=== PATIENT | male | born 1945 | race Caucasian/White ===

== ENCOUNTER 2016-12-01 09:15 | Emergency (ER) | payer MEDICARE ==
[2016-12-01 09:24] VITALS: BP 115/73
[2016-12-01] MEDS ORDERED: predniSONE TAB* 20 MG PO ONE (09:46)
--- NOTE | 2016-12-01 09:46 | UC ---
Lower Extremity/Ankle HPI - HPI Summary HPI Summary: 71 YO MALE WITH THE ONSET OF RIGHT GREAT TOE PAIN AND REDNESS X 1 DAY NO TRAUMA PAIN FREE UNLESS WT BEARING - History of Current Complaint Chief Complaint: UCLowerExtremity Stated Complaint: FOOT COMPLAINT Time Seen by Provider: 12/01/16 09:39 Hx Obtained From: Patient Onset/Duration: Gradual Onset, Lasting Hours Severity Initially: Moderate Severity Currently: Mild Pain Intensity: 0 - WHILE SEATED Pain Scale Used: 0-10 Numeric Aggravating Factor(s): Standing, Ambulation Alleviating Factor(s): Rest Able to Bear Weight: Yes - Allergies/Home Medications Allergies/Adverse Reactions: Allergies Allergy/AdvReac Type Severity Reaction Status Date / Time Sulfa Antibiotics Allergy Hives Verified 12/01/16 09:18 Home Medications: Home Medications Levothyroxine TAB* [Synthroid 25 MCG TAB*] 0.75 mcg PO DAILY 12/01/16 [History Confirmed 12/01/16] Linagliptin (NF) [Tradjenta (NF)] 5 mg PO DAILY 12/01/16 [History Confirmed ] PMH/Surg Hx/FS Hx/Imm Hx Previously Healthy: Yes Endocrine History: Diabetes, Dyslipidemia Cardiovascular History: Hypertension - Surgical History Surgical History: Yes Surgery Procedure, Year, and Place: 1984 & May 2008 - Hernia repair. LEG VAIN SURGERY. testicle cyst removed. dental - Family History Known Family History: Positive: Cardiac Disease, Hypertension, Other - DENIES FH OF GOUT - Social History Alcohol Use: None Substance Use Type: None Smoking Status (MU): Never Smoked Tobacco Review of Systems Constitutional: Negative Skin: Negative Eyes: Negative ENT: Negative Respiratory: Negative Cardiovascular: Negative Gastrointestinal: Negative Genitourinary: Negative Motor: Negative Neurovascular: Negative Musculoskeletal: Arthralgia Neurological: Negative Psychological: Negative Is Patient Immunocompromised?: No All Other Systems Reviewed And Are Negative: Yes Physical Exam Triage Information Reviewed: Yes Appearance: Well-Appearing, No Pain Distress, Well-Nourished Vital Signs: Initial Vital Signs Temp 97.8 F 12/01/16 09:20 Pulse 84 12/01/16 09:20 Resp 16 12/01/16 09:20 BP 115/73 12/01/16 09:20 Pulse Ox 100 12/01/16 09:20 Vital Signs Reviewed: Yes Eyes: Positive: Conjunctiva Clear ENT: Positive: Hearing grossly normal. Negative: Nasal congestion, Nasal drainage, Tonsillar swelling, Tonsillar exudate, Trismus, Muffled/hoarse voice Neck: Positive: Supple, Nontender Respiratory: Positive: Lungs clear, Normal breath sounds, No respiratory distress Cardiovascular: Positive: RRR, No Murmur Musculoskeletal: Positive: Other: - SEE IMAGE Psychological: Positive: Normal Response To Family Skin Exam: Normal Lower Extremity Course/Dx - Differential Dx/Diagnosis Provider Diagnoses: gout Discharge - Discharge Plan Condition: Stable Disposition: HOME Prescriptions: Prednisone 60 mg PO DAILY #6 tab Patient Education Materials: Low Purine Diet (ED), Gout (ED) Referrals: Hal Barrera MD [Primary Care Provider] - 4 Days (IF NOT BETTER) Images Feet (Multiple View): 1 - RED/SWOLLEN/TENDER
== END 2016-12-01 10:00 | disposition home or self-care (01) ==
LOC: UCEAST 09:15
DX: M10.9 Gout, unspecified (principal); E11.9 Type 2 diabetes mellitus without complications; I10 Essential (primary) hypertension; Z88.2 Allergy status to sulfonamides; Z79.84 Long term (current) use of oral hypoglycemic drugs
CPT/HCPCS: 99212; G0463; J7512

== ENCOUNTER 2019-01-11 15:37 | Emergency (ER) | payer MEDICARE ==
[2019-01-11 15:47] VITALS: BP 107/67
--- NOTE | 2019-01-11 15:49 | UC ---
General HPI - HPI Summary HPI Summary: Patient is a 73yo male presenting with 2 tick bites to the groin area. One he states he noticed yesterday morning and the other this morning. Patient states he removed the first one and the other "must have fallen off." Notes erythema of both. Denies warmth, drainage, bleeding. Denies tenderness. Denies fever and chills. Denies n/v. Patient is unsure how long the ticks were attached. - History of Current Complaint Chief Complaint: UCSkin Stated Complaint: TICK BITE Hx Obtained From: Patient Pain Intensity: 0 - Allergy/Home Medications Allergies/Adverse Reactions: Allergies Allergy/AdvReac Type Severity Reaction Status Date / Time Sulfa (Sulfonamide Allergy Hives Verified 01/11/19 15:46 Antibiotics) PMH/Surg Hx/FS Hx/Imm Hx Endocrine History: Diabetes Cardiovascular History: Hypertension - Surgical History Surgical History: Yes Surgery Procedure, Year, and Place: 1984 & May 2008 - Hernia repair. LEG VAIN SURGERY. testicle cyst removed. dental - Family History Known Family History: Positive: Cardiac Disease, Hypertension, Other - DENIES FH OF GOUT - Social History Alcohol Use: None Substance Use Type: None Smoking Status (MU): Former Smoker When Did the Patient Quit Smoking/Using Tobacco: 03/11/1972 Review of Systems All Other Systems Reviewed And Are Negative: No Constitutional: Positive: Negative. Negative: Fever, Chills Skin: Positive: Other - 2 tick bites in groin area Respiratory: Positive: Negative Cardiovascular: Positive: Negative Musculoskeletal: Positive: Negative Neurological: Positive: Negative Physical Exam Triage Information Reviewed: Yes Appearance: Well-Appearing, No Pain Distress, Well-Nourished Vital Signs: Initial Vital Signs Temp 96.9 F 01/11/19 15:42 Pulse 88 01/11/19 15:42 Resp 18 01/11/19 15:42 BP 107/67 01/11/19 15:42 Pulse Ox 97 01/11/19 15:42 Vital Signs Reviewed: Yes Eyes: Positive: Conjunctiva Clear ENT: Positive: Hearing grossly normal Neck: Positive: Supple Respiratory: Positive: No respiratory distress Neurological: Positive: Alert Psychological: Positive: Age Appropriate Behavior Skin: Positive: Other - tick bites of R and L inguinal region. minimal erythema. no signs of infection Course/Dx - Course Course Of Treatment: I treated with prophylactic dose of doxy. Educated on s/s of skin infection and instructed to return if they occur. Educated on s/s of Lyme and to follow up with PCP if needed. Patient voiced understanding and agreed with treatment plan. - Diagnoses Provider Diagnosis: Tick bite of groin Discharge ED - Sign-Out/Discharge Documenting (check all that apply): Patient Departure All imaging exams completed and their final reports reviewed: No Studies - Discharge Plan Condition: Stable Disposition: HOME Prescriptions: DOXYcycline CAP(*) [DOXYcycline 100MG CAP(*)] 200 mg PO ONCE #2 cap Patient Education Materials: Tick Bite (ED) Referrals: Hal Barrera MD [Primary Care Provider] - If Needed Additional Instructions: As discussed, take the one-time dose of Doxycycline to prevent Lyme Disease. It is recommended that you take this with food to avoid stomach upset. No further treatment is required. Follow up with your PCP if you experience a rash where you were the tick bit you within the next month. Return or go to the emergency room if you experience fever, nausea and vomiting , or increasing redness, warmth, or drainage from the area. - Billing Disposition and Condition Condition: STABLE Disposition: Home - Attestation Statements Provider Attestation: I was available for consult. This patient was seen by the [facility]. The patient was not presented to, seen by, or examined by me. -David
== END 2019-01-11 16:10 | disposition home or self-care (01) ==
LOC: UCEAST 15:37
DX: S30.861A Insect bite (nonvenomous) of abdominal wall, initial encounter (principal); E11.9 Type 2 diabetes mellitus without complications; I10 Essential (primary) hypertension; Z88.2 Allergy status to sulfonamides; Z87.891 Personal history of nicotine dependence; W57.XXXA Bitten or stung by nonvenomous insect and other nonvenomous arthropods, initial encounter; Y92.9 Unspecified place or not applicable
CPT/HCPCS: 99212; G0463